=== PATIENT | female | born 1960 | race Caucasian/White ===

== ENCOUNTER 2020-02-01 21:27 | Emergency (ER) | payer SELFPAY ==
[~2020-02-01] VITALS: Ht 157.5 cm; Wt 72.7 kg
[2020-02-01] MEDS ORDERED: IV NORMAL SALINE 1000ML BAG 1,000 ML IV ONE (22:00)
[2020-02-01 22:05] LABS: BASO % 1 % (0-3); EOS # 0.1 x10^3/uL (0.0-0.7); EOS % 2 % (0-3); HEMATOCRIT 37.2 % (36.0-47.0); HEMOGLOBIN 12.6 g/dL (12.0-15.5); LYMPH # 1.6 x10^3/uL (1.0-4.8); LYMPH % 32 % (24-48); MEAN CORPUSCULAR HEMOGLOBIN 32 pg (25-35); MEAN CORPUSCULAR HGB CONC 34 g/dL (31-37); MEAN CORPUSCULAR VOLUME 95 fL (79-100); MONO # 0.4 x10^3/uL (0.0-1.1); MONO % 8 % (0-9); NEUT # 2.8 x10^3/uL (1.8-7.7); NEUT % 57 % (31-73); PLATELET COUNT 230 x10^3/uL (140-400); RED BLOOD COUNT 3.93 x10^6/uL (3.50-5.40); RED CELL DISTRIBUTION WIDTH 12.8 % (11.5-14.5); WHITE BLOOD COUNT 4.9 x10^3/uL (4.0-11.0)
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
[2020-02-01 22:16] LABS: CALCIUM 8.6 mg/dL (8.5-10.1); CREATININE 0.6 mg/dL (0.6-1.0); GFR 102.7; POTASSIUM 3.6 mmol/L (3.5-5.1)
[2020-02-01 22:22] LABS: ALBUMIN 3.6 g/dL (3.4-5.0); ALBUMIN/GLOBULIN RATIO 0.9 (1.0-1.7); TOTAL BILIRUBIN 0.4 mg/dL (0.2-1.0); TOTAL PROTEIN 7.6 g/dL (6.4-8.2)
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
[2020-02-01] MEDS ORDERED: ACETAMINOPHEN 325 MG TABLET. PO ONE (23:00)
[2020-02-02] MEDS ORDERED: HYDROcodone/APAP 5/325MG 1 TAB TABLET PO ONE (02:00)
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
[2020-02-02] MEDS ORDERED: NAPR-683 PO (02:59)
[2020-02-02] MEDS ORDERED: ONDA4TAB7 PO (02:59)
[2020-02-02 03:33] VITALS: BP 114/68
== END 2020-02-02 03:33 | disposition home or self-care (01) ==
LOC: ER 21:27
DX: S02.2XXA Fracture of nasal bones, initial encounter for closed fracture (principal); S06.0X1A Concussion with loss of consciousness of 30 minutes or less, initial encounter; S00.83XA Contusion of other part of head, initial encounter; F10.920 Alcohol use, unspecified with intoxication, uncomplicated; G89.29 Other chronic pain; M54.5 Low back pain; F17.200 Nicotine dependence, unspecified, uncomplicated; Y04.0XXA Assault by unarmed brawl or fight, initial encounter; Y93.89 Activity, other specified; Y92.89 Other specified places as the place of occurrence of the external cause; Y99.8 Other external cause status
CPT/HCPCS: 36415; 70450; 70486; 72125; 80053; 85025; 96360; 96361; 99285; G0480; J7030